=== PATIENT | female | born 1955 | race Caucasian/White ===

== ENCOUNTER 2024-03-31 17:03 | Emergency (ER) | payer BC, MEDICARE ==
[2024-03-31] MEDS ORDERED: Lactated Ringers 1,000 ML IV ONE (17:04)
[2024-03-31] MEDS ORDERED: EPINEPHrine 1:10,000 1 MG/10 ML Syringe ONE ×2 (17:06→17:25)
[2024-03-31 17:15] LABS: HEMATOCRIT 37.9 % (33.0-47.0); HEMOGLOBIN 11.6 g/dL (12.0-16.0); MEAN CORPUSCULAR HEMOGLOBIN 27.2 pg (26.0-32.0); MEAN CORPUSCULAR HGB CONC 30.6 g/dL (32.0-36.0); PLATELET COUNT,PLT 343 x10^3/uL (130-400); RED BLOOD CELL COUNT 4.26 x10^6/uL (4.00-5.50)
[2024-03-31 17:21] LABS: HCO3 VENOUS,POC 12 mmol/L (22-29); O2 SATURATION VENOUS,POC 95 %; PCO2 VENOUS,POC 35 mmHg (41-51); PH VENOUS,POC 7.14 pH (7.32-7.43); PO2 VENOUS,POC 97 mmHg
[2024-03-31 17:25] LABS: BAND PERCENT MAN 3 % (0-6); HYPOCHROMASIA 1+ SLIGHT; LYMPHOCYTES % ATYPICAL MANUAL 6 % (0); LYMPHOCYTES ABSOLUTE MAN 3.9 x10^3/uL (1.0-4.8); LYMPHOCYTES PERCENT MAN 50 % (25-50); MONOCYTES ABSOLUTE MAN 0.3 x10^3/uL (0.0-0.8); MONOCYTES PERCENT MAN 4 % (2-11); NEUTROPHILS ABSOLUTE MAN 2.8 x10^3/uL (1.8-7.7); PLATELET COUNT ESTIMATE ADEQUATE; SEG NEUTROPHILS PERCENT MAN 37 % (50-80)
[2024-03-31 17:27] LABS: INR 1.1 (0.9-1.1); PTT,PARTIAL THROMBOPLSTIN TIME 29.2 SEC (23.5-33.2)
[2024-03-31 17:33] LABS: BLOOD UREA NITROGEN,BUN 17 mg/dL (7-18); CALCIUM 10.8 mg/dL (8.5-10.1); CARBON DIOXIDE,CO2 20 mmol/L (21-32); CHLORIDE,CL 103 mmol/L (98-107); CREATININE 0.9 mg/dL (0.55-1.02); GLUCOSE RANDOM 363 mg/dL (70-99); POTASSIUM,K 4.3 mmol/L (3.5-5.1); SODIUM,NA 144 mmol/L (136-145)
[2024-03-31 17:34] LABS: ANION GAP 25.3 mmol/L (5-15); ESTIMATED GFR 71 mL/min (>=60)
== END 2024-03-31 17:22 | disposition expired ==
LOC: MERGE 17:03 → VM.ED 17:03
DX: I46.9 Cardiac arrest, cause unspecified (principal); I10 Essential (primary) hypertension; E78.00 Pure hypercholesterolemia, unspecified; E03.9 Hypothyroidism, unspecified; E11.9 Type 2 diabetes mellitus without complications; Z88.0 Allergy status to penicillin; Z88.8 Allergy status to other drugs, medicaments and biological substances; Z79.2 Long term (current) use of antibiotics; Z79.890 Hormone replacement therapy; Z79.899 Other long term (current) drug therapy; Z86.16 Personal history of COVID-19; Z90.49 Acquired absence of other specified parts of digestive tract
CPT/HCPCS: 71045; 80048; 82803; 84484; 85025; 85610; 85730; 92950; 93010; 99284; 99285-25; J7120